=== PATIENT | male | born 1995 | race Caucasian/White ===

== ENCOUNTER 2017-01-08 19:04 | Emergency (ER) | payer OTHER ==
[~2017-01-08] VITALS: Ht 180.3 cm; Wt 79.4 kg
[2017-01-08] MEDS ORDERED: IBUPROFEN400 MG PO (19:13)
[2017-01-08] MEDS ORDERED: NEOMYCIN-POLYMY10 M1 OTIC (19:48)
[2017-01-08] MEDS ORDERED: TRAMADOL HCL50 MG PO (19:48)
== END 2017-01-08 20:10 | disposition home or self-care (01) ==
LOC: ED 19:04
DX: H60.92 Unspecified otitis externa, left ear (principal); F17.200 Nicotine dependence, unspecified, uncomplicated; Z88.1 Allergy status to other antibiotic agents
CPT/HCPCS: 99283

== ENCOUNTER → 2017-10-13 | Emergency (ER) | payer OTHER ==
[~2017-10-13] VITALS: Ht 180.3 cm; Wt 79.4 kg
[~2017-10-13] MED LIST: IBUPROFEN400 MG PO; NEOMYCIN-POLYMY10 M1 OTIC; TRAMADOL HCL50 MG PO
== END ==
LOC: ED 22:44
DX: S01.03XA Puncture wound without foreign body of scalp, initial encounter (principal); W22.8XXA Striking against or struck by other objects, initial encounter; Z88.0 Allergy status to penicillin
CPT/HCPCS: 90471; 90715; 99282